=== PATIENT | female | born 1945 | race Caucasian/White ===

== ENCOUNTER 2023-04-22 10:30 | Outpatient (RCR) | payer MEDICARE, OTHER, SELFPAY ==
--- NOTE | 2023-02-24 11:48 | HP.PTEVAL ---
Patient's Visit Information YEVGENIY ARMENDARIZ is a 77 year old F referred to Physical Therapy by DOROTHEA GARRISON with a diagnosis of S/P R TKA. Date of Evaluation: 02/20/23 Physical Therapist: Hung Concepcion DPT - Visit Plan Frequency: 3x /Week Duration: 6 Weeks Plan: Start with glute med, max, core strengthening. Add in gait techniques with focus on hip stability and good gait techniques. - Subjective Pt. is here today for her initial evaluation with diagnosis of S/P R knee replacement. Pt. had a knee replacement ~ 1 year ago. She reports overall not much pain, but does have some difficulty with her walking. Pt. reports she does not walk the way she would like to at this point in time. She reports having a large valgus initially, but is now corrected. She still has a decent valgus on the L side as well. Pt. reports being able to do most things, but does use a cane with most mobility. Pt. has done home health in the past and was told to work on her hip strengthening. Pt. is hopeful to increase her strength in order to walk better and without AD. - Objective POSTURE: Pt. has L knee valgus and R knee varus in stance. Slight lateral R hip translation in stance as well. PALPATION: Pt. has no pain with palpation of BLEs. NEURO: Pt. has normal DTR of achilles of BLEs. Pt. is able to rise on heels and toes without limitations. ROM: Pt. has good ROM of R knee 0-0-121deg. Normal HS length. Pt. has decent R hip ROM as well, no pain noted. MMT: LLE: ankle 5/5 throughout; knee: ext 5/5, flexion 5/5; hip: flexion 4+/5, abd 4/5, ext 4/5. RLE: ankle 5/5 throughout; knee: ext 5-/5, flexion 5-/5; hip: flexion 4+/5, abd 4-/5. ext 4/5. Core strength: poor. GAIT: Pt. has increased tren[place]mburg pattern during R stance phase. She has increased genu varum during R stance as well, which is extenuated by her weak R hip. Worse without Ad, decent pattern with cane. - Balance/Special Test Scores Lower Extremity Functional Score: 40 - Goals Goal 1:: LTG: Pt. to be I with HEP. Goal Time Frame: 4-6 Weeks Goal 2:: STG: pt. to ambulate with normal gait pattern cane with decreased Trendelenburg pattern. Goal Time Frame: 2-4 Weeks Goal 3:: LTG: Pt. to have normal gait pattern without AD. Goal Time Frame: 4-6 Weeks Goal 4:: LTG: Pt. to have increased glute med, glute max and core strength by 1/2 grade throughout allowing for increased stability with all gait. Goal Time Frame: 4-6 Weeks - Rehabilitation Potential Physical Therapy Diagnosis: Pt. is status post R TKA ~1 year previously. She is still having some trouble with weakness in her R hip which in turn is causing her gait to be abnormal. She presents with a Trendelenburg pattern during R stance phase. She would benefit from PT to address this weakness progressing back to all recreational walking without limitations or need for AD. Rehabilitation Potential: Good - Anticipated Interventions Patient/Client Instruction: Educate patient on: Condition, Plan of Care, Risk Factors, Benefits of Fitness Program For the Purpose of:: To improve decision making, To facilitate caregiver knowledge, To improve self management, To prevent re-injury, To improve ability to perform tasks related to life management Therapeutic Exercise to Include: Strength training, Power training, Endurance training, Balance training, Postural training, Gait and locomotor training For the Purpose of:: To increase ROM, To improve nutrient delivery to tissue, To increase oxygenation perfusion, To improve muscle performance and motor function, To improve ability to perform ADL's, To increase tolerance to activity/condition/position, To improve performance and independence with ADL's, To decrease level of supervision to perform tasks, To improve ability of physical actions for home/community/work/leisure, To improve gait and locomotor functions, To improve health of tissue, To increase flexibility/ROM Thank you for the opportunity to evaluate your patient. For Medicare and Medicare HMO plans, please review the plan of care and approve it. It will need to be FAXED BACK to us at [phone] for Medicare purposes. For Medicare only, by signing this I certify the plan of care. Please let me know if there are questions or concerns regarding this plan of care. Physician Signature: Date:
--- NOTE | 2023-04-22 10:34 | HP.PTREVAL_ITS ---
DOROTHEA GARRISON, It has been my pleasure to treat YEVGENIY ARMENDARIZ over the last 9 visits for S/P R TKA. Please see the progress note below for an update on the physical therapy plan of care! Subjective: Pt. reports overall doing well. Pt. has improved stability in stance. She reports she feels like she is getting stronger. Objective/Function: Pt. continues to have good ROM of her R knee. She does how ever continue to presents with Trendelenburg gait during R stance phase, less so with SPC. She has improved, but has her gait distance continues it does seem to worsen. MMT: R hip abd: 5#, flexion 10#. R hip ER 5#. Pt. has improved gait pattern, but still is effected. Plan Plan: I would like her to work on her strengthening of her R hip including glute med/max, hip ER to increase her stability with gait and reduce her Trendelenburg gait. She is to work on this for a month then recheck back with PT. Balance/Gait/Functional tests - Balance/Special Test Scores Lower Extremity Functional Score: 40 Goals Goal 1:: LTG: Pt. to be I with HEP. Goal Time Frame: 4-6 Weeks Goal Progress: Goal Met Goal 2:: STG: pt. to ambulate with normal gait pattern cane with decreased Trendelenburg pattern. Goal Time Frame: 2-4 Weeks Goal Progress: Progressing Goal 3:: LTG: Pt. to have normal gait pattern without AD. Goal Time Frame: 4-6 Weeks Goal Progress: Progressing Goal 4:: LTG: Pt. to have increased glute med, glute max and core strength by 1/2 grade throughout allowing for increased stability with all gait. Goal Time Frame: 4-6 Weeks Goal Progress: Progressing Anticipated Interventions Patient/Client Instruction: Educate patient on: Condition, Plan of Care, Risk F actors, Benefits of Fitness Program For the Purpose of:: To improve decision making, To facilitate caregiver knowledge, To improve self management, To prevent re-injury, To improve ability to perform tasks related to life management Therapeutic Exercise to Include: Strength training, Power training, Endurance training, Balance training, Postural training, Gait and locomotor training For the Purpose of:: To increase ROM, To improve nutrient delivery to tissue, To increase oxygenation perfusion, To improve muscle performance and motor function, To improve ability to perform ADL's, To increase tolerance to activity/condition/position, To improve performance and independence with ADL's, To decrease level of supervision to perform tasks, To improve ability of physical actions for home/community/work/leisure, To improve gait and locomotor functions, To improve health of tissue, To increase flexibility/ROM Please do not hesitate to contact me at [phone] by phone or if you have questions or concerns regarding this new plan of care! Sincerely, ANNETTE DíazT
== END 2023-04-22 19:00 | disposition home or self-care (01) ==
LOC: PT 10:30
PROVIDERS: PCP Family Medicine
DX: Z96.651 Presence of right artificial knee joint (principal)
CPT/HCPCS: 97110; 97161; 97164